=== PATIENT | male | born 1985 | race Asian ===

== ENCOUNTER 2020-03-23 10:35 | Emergency (ER) | payer OTHER ==
[~2020-03-23] VITALS: Ht 172.7 cm; Wt 66.2 kg
[2020-03-23 11:04] VITALS: Ht 172.7 cm; Wt 66.2 kg
[2020-03-23 11:50] LABS: PLATELET COUNT 193 x10^3mcL (130-400); RED CELL DISTRIBUTION WIDTH 13.6 % (11.5-14.5)
[2020-03-23 12:11] LABS: CALCIUM 8.9 mg/dL (8.5-10.1); CARBON DIOXIDE 29.5 mmol/L (21-32); CHLORIDE SERUM 106 mmol/L (98-107); GFR1 > 60 mL/min; GLUCOSE SERUM 89 mg/dL (74-106); POTASSIUM SERUM 3.9 mmol/L (3.5-5.1); SODIUM SERUM 140 mmol/L (136-145)
[2020-03-23 12:16] LABS: ALBUMIN 3.7 g/dL (3.4-5.0); ALKALINE PHOSPHATASE 67 U/L (46-116); ALT/SGPT 62 U/L (16-63); AST/SGOT 27 U/L (15-37); BILIRUBIN TOTAL 0.48 mg/dL (0.20-1.00); LIPASE 241 IU/L (73-393); TOTAL PROTEIN, SERUM 7.3 g/dL (6.4-8.2)
[2020-03-23 13:26] VITALS: BP 100/65
== END 2020-03-23 13:26 | disposition home or self-care (01) ==
LOC: ED 10:35
PROVIDERS: Emergency Medicine
DX: R10.13 Epigastric pain (principal)
CPT/HCPCS: Q0092